=== PATIENT | male | born 1995 | race African-American/Black ===

== ENCOUNTER 2019-02-16 09:39 | Emergency (ER) | payer SELFPAY ==
[~2019-02-16] VITALS: Ht 182.9 cm; Wt 135.0 kg
[2019-02-16 11:20] VITALS: BP 129/90
== END 2019-02-16 11:20 | disposition home or self-care (01) ==
LOC: ER 09:39
DX: B99.9 Unspecified infectious disease (principal); H10.89 Other conjunctivitis
CPT/HCPCS: 99283

== ENCOUNTER 2021-11-04 09:44 | Emergency (ER) | payer MEDICAID ==
[~2021-11-04] VITALS: Ht 180.3 cm; Wt 127.0 kg
[2021-11-04 09:50] VITALS: BP 151/81
[2021-11-04] MEDS ORDERED: ACETAMINOPHEN 325MG TABLET PO ONE (10:15)
[2021-11-04] MEDS ORDERED: MAGNESIUM/ALUMINUM HYDROXIDE/SIMETHICONE 30ML UDC PO ONE (10:15)
[2021-11-04] MEDS ORDERED: ONDANSETRON 4MG ODT PO ONE (10:15)
[2021-11-04] MEDS ORDERED: FAMOTIDINE 20MG TABLET PO ONE (10:15)
[2021-11-04] MEDS ORDERED: MAG-55 MT (10:21)
[2021-11-04] MEDS ORDERED: FAMO40TA70 MT (10:21)
== END 2021-11-04 10:42 | disposition home or self-care (01) ==
LOC: ER 09:44
DX: K21.9 Gastro-esophageal reflux disease without esophagitis (principal); K29.70 Gastritis, unspecified, without bleeding
CPT/HCPCS: 99282

== ENCOUNTER 2022-01-17 19:12 | Emergency (ER) | payer MEDICAID ==
[~2022-01-17] VITALS: Ht 182.9 cm; Wt 116.0 kg
[~2022-01-17 19:12] MED LIST: FAMO40TA70 MT; MAG-55 MT
[2022-01-17 19:46] VITALS: BP 146/94
== END 2022-01-17 21:25 | disposition left against medical advice (07) ==
LOC: ER 19:12
DX: Z53.21 Procedure and treatment not carried out due to patient leaving prior to being seen by health care provider (principal)

== ENCOUNTER 2022-01-19 10:22 | Emergency (ER) | payer MEDICAID ==
[~2022-01-19] VITALS: Ht 182.9 cm; Wt 116.0 kg
[2022-01-19 10:36] VITALS: BP 133/69
[2022-01-19] MEDS ORDERED: BACITRACIN ZINC OINT UDPKT TOP SCH (12:15)
== END 2022-01-19 12:21 | disposition home or self-care (01) ==
LOC: ER 11:15
DX: S51.811D Laceration without foreign body of right forearm, subsequent encounter (principal); X58.XXXD Exposure to other specified factors, subsequent encounter
CPT/HCPCS: 99282

== ENCOUNTER 2022-02-10 12:32 | Emergency (ER) | payer SELFPAY ==
[~2022-02-10] VITALS: Ht 182.9 cm; Wt 116.0 kg
[2022-02-10 12:44] VITALS: BP 135/78
== END 2022-02-10 17:30 | disposition home or self-care (01) ==
LOC: ER 12:32
DX: Z48.00 Encounter for change or removal of nonsurgical wound dressing (principal); S51.811D Laceration without foreign body of right forearm, subsequent encounter; X58.XXXD Exposure to other specified factors, subsequent encounter; Z91.19 Patient's noncompliance with other medical treatment and regimen
CPT/HCPCS: 99281

== ENCOUNTER 2022-05-21 23:46 | Emergency (ER) | payer SELFPAY ==
[2022-05-23] MEDS ORDERED: FAMO-287 MT (13:51)
== END 2022-05-22 00:10 | disposition left against medical advice (07) ==
LOC: ER 23:46
DX: Z53.21 Procedure and treatment not carried out due to patient leaving prior to being seen by health care provider (principal)

== ENCOUNTER 2022-05-23 09:55 | Emergency (ER) | payer SELFPAY ==
[~2022-05-23] VITALS: Ht 182.9 cm; Wt 106.0 kg
[2022-05-23 10:04] VITALS: BP 152/93
[2022-05-23 12:55] LABS: CLARITY URINE TURBID (CLEAR); COLOR URINE YELLOW (YELLOW); KETONES URINE TRACE (NEGATIVE); LEUKOCYTE ESTERASE URINE TRACE (NEGATIVE); NITRITE URINE NEGATIVE (NEGATIVE); OCCULT BLOOD URINE NEGATIVE (NEGATIVE); PH URINE 6.5 (4.5-8.0); PROTEIN URINE TRACE (NEGATIVE); SPECIFIC GRAVITY URINE 1.028 (1.005-1.030)
[2022-05-23 13:23] LABS: BASOPHILS % 0.5 % (0.0-2.0); EOSINOPHILS % 1.8 % (0.0-5.0); HEMATOCRIT. 38.2 % (42.0-52.0); HEMOGLOBIN. 12.1 g/dL (14.0-18.0); LYMPHOCYTES % 40.6 % (20.0-50.0); MEAN CORPUSCULAR HEMOGLOBIN 24.3 pg (28.0-32.0); MEAN CORPUSCULAR VOLUME 76.5 fL (80.0-94.0); MEAN PLATELET VOLUME 8.5 fl (7.4-10.4); MONOCYTES % 13.2 % (2.0-8.0); NEUTROPHILS % 43.9 % (40.0-76.0); PLATELET 347 x1000/uL (130-400); RED CELL DISTRIBUTION WIDTH 24.3 % (11.6-14.6)
[2022-05-23 13:35] LABS: CHLORIDE 109 mEq/L (98-107)
[2022-05-23] MEDS ORDERED: FAMO-287 MT (13:51)
[2022-05-23 15:33] LABS: PLATELET ESTIMATE NORMAL
== END 2022-05-23 14:28 | disposition home or self-care (01) ==
LOC: ER 09:55
DX: R10.9 Unspecified abdominal pain (principal); Z59.00 Homelessness unspecified
CPT/HCPCS: 36415; 80053; 81003; 85025; 99283

== ENCOUNTER 2022-10-21 20:44 | Emergency (ER) | payer SELFPAY ==
[~2022-10-21] VITALS: Ht 182.9 cm; Wt 107.0 kg
[~2022-10-21 20:44] MED LIST changes: +FAMO-287 MT
[2022-10-21 21:44] VITALS: BP 121/77
== END 2022-10-22 00:18 | disposition home or self-care (01) ==
LOC: ER 20:44
DX: K29.00 Acute gastritis without bleeding (principal); K21.9 Gastro-esophageal reflux disease without esophagitis
CPT/HCPCS: 99281